=== PATIENT | male | born 1975 | race Caucasian/White ===

== ENCOUNTER 2019-06-16 20:09 | Inpatient (IN) | payer MEDICARE, OTHER ==
[2019-06-16 20:29] LABS: Glucose,Whole Blood 106 mg/dL (75-99)
--- NOTE | 2019-06-16 20:38 | CT ---
EXAMINATION TYPE: CT brain wo con for TPA DATE OF EXAM: 06/16/2019 COMPARISON: None HISTORY: Code stroke, neuro deficits CT DLP: 1161 mGycm Automated exposure control for dose reduction was used. FINDINGS: Ventricles have normal size. There is no mass effect nor midline shift. There is no sign of intracran ial hemorrhage. The calvarium is intact. IMPRESSION: Negative CT scan of the brain.
[2019-06-16] MEDS ORDERED: Alteplase PER PHARMACY Stroke 1 EACH MISC MISCELLANE PRN (20:41)
[2019-06-16] MEDS ORDERED: ALTEPLASE BOLUS 1 MG/1 ML SYRINGE IV STA (20:44)
[2019-06-16] MEDS ORDERED: ALTEPLASE 59 MG in EMPTY BAG 1 BAG IV STA ×2 (20:44→21:05)
[2019-06-16 20:45] LABS: ALT 9 U/L (21-72); AST 14 U/L (17-59); African American GFR (CKD) >90 (>60 ml/min/1.73 sqM); Albumin 4.3 g/dL (3.5-5.0); Alkaline Phosphatase 46 U/L (38-126); Anion Gap 7 mmol/L; Blood Urea Nitrogen 18 mg/dL (9-20); Calcium 9.4 mg/dL (8.4-10.2); Carbon Dioxide 27 mmol/L (22-30); Chloride 105 mmol/L (98-107); Glucose 96 mg/dL (74-99); Potassium 4.5 mmol/L (3.5-5.1); Sodium 139 mmol/L (137-145); Total Bilirubin 0.4 mg/dL (0.2-1.3)
[2019-06-16 20:46] LABS: Basophils # (A) 0.1 k/uL (0-0.2); Basophils % (A) 1 %; Eosinophils # (A) 0.2 k/uL (0-0.7); Eosinophils % (A) 3 %; HGB 15.5 gm/dL (13.0-17.5); Lymphocytes # (A) 2.3 k/uL (1.0-4.8); Lymphocytes % (A) 35 %; MCH 29.9 pg (25.0-35.0); MCHC 32.9 g/dL (31.0-37.0); MCV 90.7 fL (80.0-100.0); Mean Platelet Volume 10.8; Monocytes # (A) 0.5 k/uL (0-1.0); Monocytes % (A) 8 %; Neutrophils # (A) 3.4 k/uL (1.3-7.7); Neutrophils % (A) 51 %; Platelet Count 184 k/uL (150-450); RBC 5.18 m/uL (4.30-5.90); RDW 14.9 % (11.5-15.5); WBC 6.6 k/uL (3.8-10.6)
[2019-06-16 20:48] LABS: Partial Thromboplastin Time 26.8 sec (22.0-30.0); Prothrombin Time 10.7 sec (9.0-12.0)
[2019-06-16 20:51] LABS: Creatine Kinase 45 U/L (55-170)
--- NOTE | 2019-06-16 20:52 | ED ---
Neuro HPI - General Chief Complaint: Neuro Symptoms/Deficit Stated Complaint: Stroke Symptoms Time Seen by Provider: 06/16/19 20:09 Source: patient, EMS, RN notes reviewed Mode of arrival: EMS - History of Present Illness Is the patient presenting with stroke symptoms?: Yes Initial Comments: This a 43-year-old male history of TIA in 2014 who presents with complains the onset of left-sided facial droop left upper lower extremity weakness and started about 90 minutes prior to arrival. Denies any headache denies any trauma fevers chills nausea vomiting sweats. He does admit to being a smoker. He denies any other complaints at this time. - Related Data Home Medications: Home Medications Medication Instructions Recorded Confirmed Ibuprofen/Diphenhydramine HCl 2 cap PO HS 06/16/19 06/16/19 [Advil Pm Liqui-Gels] Ranitidine HCl [Zantac] 150 mg PO HS 06/16/19 06/16/19 Allergies/Adverse Reactions: Allergies Allergy/AdvReac Type Severity Reaction Status Date / Time aspirin Allergy Anaphylaxis Verified 06/16/19 20:57 Penicillins Allergy Anaphylaxis Verified 06/16/19 20:57 codeine AdvReac Nausea & Verified 06/16/19 20:57 Vomiting ibuprofen AdvReac Nausea & Verified 06/16/19 20:57 Vomiting Review of Systems ROS Statement: Those systems with pertinent positive or pertinent negative responses have been documented in the HPI. ROS Other: All systems not noted in ROS Statement are negative. General Exam - General Exam Comments Initial Comments: This is a well-developed well-nourished awake alert oriented 3 male Limitations: physical limitation General appearance: alert, anxious Head exam: Present: normocephalic, other (Patient does demonstrate left facial asymmetry compared to the right with some slurred speech.) Eye exam: Present: PERRL, EOMI ENT exam: Present: other (Left facial asymmetry is noted) Neck exam: Present: normal inspection, full ROM, other (No stridor JVD or bruits). Absent: lymphadenopathy Respiratory exam: Present: normal lung sounds bilaterally. Absent: respiratory distress, wheezes, rales, rhonchi, stridor Cardiovascular Exam: Present: regular rate, normal rhythm, normal heart sounds. Absent: systolic murmur, diastolic murmur, rubs, gallop, clicks GI/Abdominal exam: Present: soft, normal bowel sounds. Absent: distended, tenderness, guarding, rebound, rigid Rectal exam: Present: deferred Extremities exam: Present: normal inspection, full ROM, normal capillary refill. Absent: tenderness, pedal edema, joint swelling, calf tenderness Back exam: Present: normal inspection Neurological exam: Present: alert, oriented X3, motor sensory deficit, other (Left facial droop left upper lower extremity hemiplegia.) Psychiatric exam: Present: normal affect, normal mood Skin exam: Present: warm, dry, intact, normal color. Absent: rash Stroke MDM - Lab Data Result diagrams: 06/16/19 20:15 06/16/19 20:15 Lab Results 06/16/19 06/16/19 06/16/19 Range/Units 20:11 20:15 20:15 WBC 6.6 (3.8-10.6) k/uL RBC 5.18 (4.30-5.90) m/uL Hgb 15.5 (13.0-17.5) gm/dL Hct 47.0 (39.0-53.0) % MCV 90.7 (80.0-100.0) fL MCH 29.9 (25.0-35.0) pg MCHC 32.9 (31.0-37.0) g/dL RDW 14.9 (11.5-15.5) % Plt Count 184 (150-450) k/uL Neutrophils % 51 % Lymphocytes % 35 % Monocytes % 8 % Eosinophils % 3 % Basophils % 1 % Neutrophils # 3.4 (1.3-7.7) k/uL Lymphocytes # 2.3 (1.0-4.8) k/uL Monocytes # 0.5 (0-1.0) k/uL Eosinophils # 0.2 (0-0.7) k/uL Basophils # 0.1 (0-0.2) k/uL Manual Slide Review Performed Large Platelets Present PT (9.0-12.0) sec INR (<1.2) APTT (22.0-30.0) sec Sodium 139 (137-145) mmol/L Potassium 4.5 (3.5-5.1) mmol/L Chloride 105 (98-107) mmol/L Carbon Dioxide 27 (22-30) mmol/L Anion Gap 7 mmol/L BUN 18 (9-20) mg/dL Creatinine 1.09 (0.66-1.25) mg/dL Est GFR (CKD-EPI)AfAm >90 (>60 ml/min/1.73 sqM) Est GFR (CKD-EPI)NonAf 83 (>60 ml/min/1.73 sqM) Glucose 96 (74-99) mg/dL POC Glucose (mg/dL) 106 H (75-99) mg/dL POC Glu Senior Information Systems Architect GREGORIA José Miguel Davila Calcium 9.4 (8.4-10.2) mg/dL Total Bilirubin 0.4 (0.2-1.3) mg/dL AST 14 L (17-59) U/L ALT 9 L (21-72) U/L Alkaline Phosphatase 46 (38-126) U/L Total Creatine Kinase (55-170) U/L CK-MB (CK-2) (0.0-2.4) ng/mL CK-MB (CK-2) Rel Index Troponin I (0.000-0.034) ng/mL Total Protein 7.0 (6.3-8.2) g/dL Albumin 4.3 (3.5-5.0) g/dL 06/16/19 06/16/19 Range/Units 20:15 20:15 WBC (3.8-10.6) k/uL RBC (4.30-5.90) m/uL Hgb (13.0-17.5) gm/dL Hct (39.0-53.0) % MCV (80.0-100.0) fL MCH (25.0-35.0) pg MCHC (31.0-37.0) g/dL RDW (11.5-15.5) % Plt Count (150-450) k/uL Neutrophils % % Lymphocytes % % Monocytes % % Eosinophils % % Basophils % % Neutrophils # (1.3-7.7) k/uL Lymphocytes # (1.0-4.8) k/uL Monocytes # (0-1.0) k/uL Eosinophils # (0-0.7) k/uL Basophils # (0-0.2) k/uL Manual Slide Review Large Platelets PT 10.7 (9.0-12.0) sec INR 1.0 (<1.2) APTT 26.8 (22.0-30.0) sec Sodium (137-145) mmol/L Potassium (3.5-5.1) mmol/L Chloride (98-107) mmol/L Carbon Dioxide (22-30) mmol/L Anion Gap mmol/L BUN (9-20) mg/dL Creatinine (0.66-1.25) mg/dL Est GFR (CKD-EPI)AfAm (>60 ml/min/1.73 sqM) Est GFR (CKD-EPI)NonAf (>60 ml/min/1.73 sqM) Glucose (74-99) mg/dL POC Glucose (mg/dL) (75-99) mg/dL POC Glu Senior Information Systems Architect ID Calcium (8.4-10.2) mg/dL Total Bilirubin (0.2-1.3) mg/dL AST (17-59) U/L ALT (21-72) U/L Alkaline Phosphatase (38-126) U/L Total Creatine Kinase 45 L (55-170) U/L CK-MB (CK-2) <0.2 (0.0-2.4) ng/mL CK-MB (CK-2) Rel Index Troponin I <0.012 (0.000-0.034) ng/mL Total Protein (6.3-8.2) g/dL Albumin (3.5-5.0) g/dL - EKG Data -: EKG Interpreted by Il EKG shows normal: sinus rhythm (Sinus rhythm with sinus rhythm a rate of 75. Interval 1:30 QRS duration 94 QT since QTC 390/[address]-T wave changes) Past Medical History Additional Past Medical History / Comment(s): TIA History of Any Multi-Drug Resistant Organisms: None Reported Past Surgical History: Cholecystectomy, Tonsillectomy Past Psychological History: No Psychological Hx Reported Smoking Status: Current every day smoker Past Alcohol Use History: None Reported Past Drug Use History: None Reported Course Vital Signs 06/16/19 20:34 Temperature 97.7 F Pulse Rate 69 Respiratory 18 Rate Blood Pressure 127/84 O2 Sat by Pulse 99 Oximetry - Reevaluation(s) Reevaluation #1: 06/16/19 20:45 A code stroke was called and a callback and did review the imaging. Patient is a TPA candidate with an NIH score of no from Bactrim he indicated. Reevaluation #2: 06/16/19 20:52 I did discuss findings with the patient has agreed to TPA. He is aware the risks and complications. He has have a history of a remote gastric ulcer in the past has not had any trouble with it for a long time he states Reevaluation #3: 06/16/19 20:52 Evaluation the patient return from CAT scan showed no difference in his findings. Reevaluation #4: 06/16/19 21:53 Patient still is demonstrating marked improvement. I did discuss the case with Dr. Sunshine, Dr. Kathleen and Dr. Holguin. Procedures - Smoking Cessation Time Spent Discussing Smoking Cessation w/Patient (Minutes): 3 Patient Acknowledges Need for Cessation: Yes Critical Care Time Critical Care Time: Yes Critical Care Time: Minutes of critical care time which includes initial presentation with history physical labs x-rays multiple reevaluation the patient to responsive therapy discussion with multiple physicians regarding the findings including Dr. Sunshine the patient be admitted to. Review of old was available admission orders and documentation of the above also includes talking family. 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
[2019-06-16 21:04] LABS: Creatine Kinase MB <0.2 ng/mL (0.0-2.4); Troponin I <0.012 ng/mL (0.000-0.034)
--- NOTE | 2019-06-16 21:07 | CT ---
EXAMINATION TYPE: CT angio head neck DATE OF EXAM: 06/16/2019 HISTORY: neuro deficits COMPARISON: CT DLP: 423.9 mGycm. Automated Exposure Control for Dose Reduction was Utilized. TECHNIQUE: CTA scan of the neck is performed with IV Contrast, patient injected with 50 mL of Isovue 370, axial images are obtained, coronal and sagittal reformatted images are reviewed. Three-D recons tructed images are created on an independent workstation and reviewed. FINDINGS: There is normal branching pattern of the great vessels on the aortic arch. There is bilateral arteria l flow in the subclavian arteries. There is arterial flow in the common internal and external carotid arteries bilaterally. There is bilateral arterial flow in the vertebral arteries. Left vertebral art tom is larger than the right. Carotid artery bifurcations are widely patent. There is arterial flow in the vertebrobasilar artery system. There is arterial flow in the anterior m iddle and posterior cerebral arteries bilaterally. There is no mass effect. There is no evidence of i ntracranial arterial stenosis. There is no evidence of carotid or vertebral artery aneurysm or dissec tion. There is normal contrast opacification of the venous sinuses. There is no evidence of intracran ial arterial aneurysm or dissection. IMPRESSION: Negative CT angiogram of the neck. Negative CT angiogram of the brain.
[2019-06-16 21:14] LABS: Large Platelets Present
--- NOTE | 2019-06-16 21:58 | XR ---
EXAMINATION TYPE: XR chest 1V portable DATE OF EXAM: 06/16/2019 COMPARISON: 09/08/2010 HISTORY: Altered mental status TECHNIQUE: Single frontal view of the chest is obtained. FINDINGS: Heart and mediastinum are normal. Lungs are clear. Diaphragm is normal. There are chest le ads. Bony thorax is intact. IMPRESSION: Normal chest. No change.
[2019-06-16] MEDS: SODIUM CHLORIDE 0.9% 1,000 ML IV SCH (22:40)
--- NOTE | 2019-06-16 22:48 | P.CNNES ---
History of Present Illness Consult date: 06/16/19 Requesting physician: Alejandro Montez Reason for Consult: CVA Chief complaint: Left facial droop and left-sided weakness History of Present Illness: This is a 43 RH male whose main vascular risk factor is tobacco use. He started smoking at age 8-9 and smokes 2.5ppd (he rolls his own cigarettes). He also sees Dr. Lara in neurology locally for migraine. Patient states his migraine consists of intense throbbing unilateral pain associated with photosonophobia and nausea. Occasionally associated with vertigo but never with dysarthria, focal numbness/weakness. Earlier today he did have a migraine. Then around 630- 700pm 06/16/19 he developed abrupt onset of left facial droop and left hemiparesis for which he presented to the ER. Initial NIHSS was 6. Interventional neurology was consulted and recommended IV t-PA, which he received at 0858pm 06/16/19 without incidence. He currently c/o right-sided CP, which the ER knows about, but no headache. His facial droop resolved. His LUE is nearly back to normal. His LLE is stronger as well but still heavy. In short, he has improved significantly since t-PA was administered. Review of Systems 14-point ROS performed and as per HPI. Neurologically, patient denies decreased level or loss of consciousness, seizure, changes in vision, diplopia, amaurosis, changes in hearing, ptosis, vertigo, hearing loss, tinnitus, dysarthria, dysphagia, aphasia, other focal numbness/weakness not mentioned above, tremors, bowel/bladder incontinence or ataxia. Past Medical History Additional Past Medical History / Comment(s): TIA History of Any Multi-Drug Resistant Organisms: None Reported Past Surgical History: Cholecystectomy, Tonsillectomy Past Psychological History: No Psychological Hx Reported Smoking Status: Current every day smoker Past Alcohol Use History: None Reported Past Drug Use History: None Reported Medications and Allergies Home Medications Medication Instructions Recorded Confirmed Type Ibuprofen/Diphenhydramine HCl 2 cap PO HS 06/16/19 06/16/19 History [Advil Pm Liqui-Gels] Ranitidine HCl [Zantac] 150 mg PO HS 06/16/19 06/16/19 History Allergies Allergy/AdvReac Type Severity Reaction Status Date / Time aspirin Allergy Anaphylaxis Verified 06/16/19 20:57 Penicillins Allergy Anaphylaxis Verified 06/16/19 20:57 codeine AdvReac Nausea & Verified 06/16/19 20:57 Vomiting ibuprofen AdvReac Nausea & Verified 06/16/19 20:57 Vomiting Physical Examination - Vital Signs Vital Signs: Vital Signs Temp Pulse Resp BP Pulse Ox 06/16/19 20:34 97.7 F 69 18 127/84 99 Intake and Output 06/16/19 06/16/19 06/16/19 06:59 14:59 22:59 Other: Weight 73.028 kg Gen NAD Pleasant and cooperative HEENT NCAT Sclera without icterus O/P clear Neck Supple No carotid bruit Cor RRR no m/r/g Lungs CTAB Abd Soft NTND +BS Ext Warm to touch No edema Neuro MS A+Ox4 Normal fluency Able to follow all commands CN PERRL VFF no APD EOMI no nystagmus or GALLO No facial asymmetry Smile is symmetric [place]'s symmetric Hearing intact to normal voice bilaterally Speech not dysarthric Equal elevation of palate Tongue midline Sym shrug and SCM bilaterally Motor Normal bulk/tone No pronator drift +LLE drift but does not hit bed No tremors Strength 5/5 right 5-/5 LUE 4+/5 LLE Sens Intact to LT x4 No neglect or extinction Coord No dysmetria on FTN bilaterally DTRs 2+/4 sym throughout Toes downgoing bilaterally No clonus at achilles Gait Deferred NIHSS 6a1=1 Results - Laboratory Findings CBC and BMP: 06/16/19 20:15 06/16/19 20:15 Abnormal Lab Findings: Abnormal Labs 06/16/19 06/16/19 06/16/19 20:11 20:15 20:15 POC Glucose (mg/dL) 106 H AST 14 L ALT 9 L Total Creatine Kinase 45 L - Diagnostic Findings Additional findings: CT Head wo cont 06/16/19. No ICH. Nil acute. CTA Head/Neck 06/16/19. No LVO or stenosis. I have reviewed all neuroimages myself. Assessment and Plan Assessment: Left FD and HP significantly improved since IV t-PA. With his significant h/o tobacco use, would be concerned about right hemispheric small vessel/lacunar- type ischemic infarct such as internal capsule. He also had a migraine earlier in the day; complicated migraine is another differential consideration but always diagnosis of exclusion. Plan: -Admit to ICU s/p IV t-PA -Neuro checks per protocol -Permissive HTN SBP <180 -No antiplatelets or anticoagulants for 24 hours -MRI Brain in am. Will need some type of cranial imaging to make sure no ICH within 24 hours after IV t-PA. If MRI cannot happen by tomorrow evening, will need repeat CT head wo cont -TTE with bubble -Fasting lipids in am goal LDL <70. Statin therapy started -Long-term goals BP <130/80 and hga1c <7.0 -Smoking cessation counseling held -Stroke education given to patient -PT/OT/SP per protocol -DVT prophylaxis: t-PA for next 24 hours -d/w patient in detail. All questions answered. Thank you for this consultation. Please call with ?. Time with Patient: Greater than 30 (Time spent in direct patient care, greater than 50% of which was spent in [id number] counseling and coordination of care: 70 minutes)
[2019-06-16 23:21] LABS: Glucose,Whole Blood 101 mg/dL (75-99)
[2019-06-17 00:17] VITALS: BMI 24.7
[2019-06-17] MEDS ORDERED: NALOXONE 0.4 MG/ML 1 ML VIAL IV PRN (01:23)
[2019-06-17 06:05] LABS: African American GFR (CKD) >90 (>60 ml/min/1.73 sqM); Anion Gap 8 mmol/L; Blood Urea Nitrogen 21 mg/dL (9-20); Calcium 9.6 mg/dL (8.4-10.2); Carbon Dioxide 22 mmol/L (22-30); Chloride 108 mmol/L (98-107); Cholesterol 200 mg/dL (<200); Glucose 87 mg/dL (74-99); HDL Cholesterol 41 mg/dL (40-60); LDL Cholesterol,Calculated 137 mg/dL (0-99); Potassium 4.6 mmol/L (3.5-5.1); Sodium 138 mmol/L (137-145); Triglycerides 110 mg/dL (<150)
[2019-06-17 06:19] LABS: Basophils # (A) 0.1 k/uL (0-0.2); Basophils % (A) 1 %; Eosinophils # (A) 0.2 k/uL (0-0.7); Eosinophils % (A) 3 %; HCT 48.1 % (39.0-53.0); HGB 15.2 gm/dL (13.0-17.5); Lymphocytes % (A) 34 %; MCH 28.8 pg (25.0-35.0); MCHC 31.7 g/dL (31.0-37.0); MCV 90.7 fL (80.0-100.0); Mean Platelet Volume 10.5; Monocytes # (A) 0.6 k/uL (0-1.0); Monocytes % (A) 7 %; Neutrophils # (A) 4.7 k/uL (1.3-7.7); Neutrophils % (A) 53 %; Platelet Count 165 k/uL (150-450); RDW 13.9 % (11.5-15.5); WBC 8.8 k/uL (3.8-10.6)
[2019-06-17 07:14] LABS: Large Platelets Present
[2019-06-17] MEDS ORDERED: FAMOTIDINE 20 MG/2 ML VIAL IV SCH (09:00)
[2019-06-17] MEDS: SODIUM CHLORIDE 0.9% 1,000 ML IV SCH (09:46)
--- NOTE | 2019-06-17 12:19 | MR ---
EXAMINATION TYPE: MR brain wo con DATE OF EXAM: 06/17/2019 COMPARISON: Outside MRI dated 05/23/2019 HISTORY: CVA status post TPA TECHNIQUE: T1-weighted sagittal, T2, FLAIR, and diffusion axial, and T2 coronal coronal views of the brain are submitted. FINDINGS: The ventricles, basal cisterns, and sulci overlying the convexities are consistent with the patient's age. There is no mass effect. Craniocervical junction maintained. Sella turcica has a normal appearance. No cerebellopontine angle mass. Changes of chronic sinusitis and right-sided mastoiditis. There are numerous areas of abnormal signal surrounding the periventricular subcortical white matter bilaterally. Nonspecific white matter changes in the pontomedullary junction are also are noted. Find ings are similar to the prior exam. IMPRESSION: 1. There is persistent diffuse white matter changes in a nonspecific pattern. Diffusion imaging does demonstrate small multiple areas of focal increased signal which are similar to the prior exam. Findi ngs could represent demyelinating plaques of multiple sclerosis. Subacute ischemia in the differentia l diagnosis with particular attention to a subcentimeter area within the left parietal white matter. Correlate clinically. Overall findings are similar to the prior MRI. Other less likely etiologies inc luding ADEM, PML or vasculitis not excluded.
[2019-06-17 12:28] VITALS: TEMP 97.6
--- NOTE | 2019-06-17 13:30 | P.CNPUL ---
History of Present Illness Consult date: 06/17/19 Reason for consult: other (Acute CVA, status post thrombolytic treatment) Chief complaint: Left sided facial droop and left-sided weakness History of present illness: This is a 43-year-old white male, smoker, patient is at least a [id number] smoker, known history of migraine cephalgia, presented to the ER yesterday with abrupt onset of left facial droop and left-sided weakness including weakness of the left upper extremity and left lower extremity. While in the ER, his NIH stroke scale was 6. Interventional neurology was consulted and recommended IV TPA to be started. This was given without incidence, his neurological symptoms have resolved, and sustained no evidence of any complications related to TPA the rapy. Patient was admitted to the ICU, and I was asked to see him on consultation. Again his neurological symptoms have dramatically improved after TPA administration. Initial CT of the brain was unremarkable. Initial CT angiogram of the neck was unremarkable. MRI this morning showed nonspecific white matter changes, very much similar to previous MRI done on 05/23/2019. The radiologist raised the possibility of demyelinating plaques of multiple sclerosis also raise the possibility of subacute ischemia in the differential diagnoses with particular attention to small tiny area in the left parietal white matter. Overall the findings on the MRI this morning were not much different from MRI done in the last month. Clinically patient is doing great, asymptomatic. Patient was seen by neurology, and recommended echocardiogram with bubble study and that is pending. Review of Systems Constitutional: Denies any weight loss, denies any fever or chills. HEENT: Denies any sore throat, denies earache, denies any headache, denies any blurred vision, did develop left facial droop shortly before arrival to the ER Pulmonary: Denies any cough no wheezing no shortness of breath no chest pain. Cardiac: Denies any chest pain, no palpitations, no diaphoresis. GI: Denies any nausea vomiting abdominal pain melena or hematemesis. Genitourinary: Denies any dysuria frequency urgency or hematuria. Musculoskeletal: Left-sided weakness, resolved post-TPA. Neurologic: As noted in HPI. Hematologic: No clotting bleeding or bruising . Psychiatric: Denies any symptoms of active depression. Skin: No rashes, no pruritus. Past Medical History Past Medical History: Asthma Additional Past Medical History / Comment(s): TIA, Murmur, Cerebral palsy History of Any Multi-Drug Resistant Organisms: None Reported Past Surgical History: Cholecystectomy, Tonsillectomy Past Psychological History: No Psychological Hx Reported Smoking Status: Current every day smoker Past Alcohol Use History: None Reported Past Drug Use History: None Reported - Past Family History Mother Family Medical History: Asthma, Congestive Heart Failure (CHF), COPD, CVA/TIA, Hypertension, Myocardial Infarction (SC), Osteoarthritis (OA), Pneumonia Father Family Medical History: COPD, CVA/TIA, Deep Vein Thrombosis (DVT), Eye Disorder, Myocardial Infarction (SC), Seizure Disorder, Thyroid Disorder Medications and Allergies Home Medications Medication Instructions Recorded Confirmed Type Ibuprofen/Diphenhydramine HCl 2 cap PO HS 06/16/19 06/16/19 History [Advil Pm Liqui-Gels] Ranitidine HCl [Zantac] 150 mg PO HS 06/16/19 06/16/19 History Allergies Allergy/AdvReac Type Severity Reaction Status Date / Time aspirin Allergy Anaphylaxis Verified 06/16/19 20:57 Penicillins Allergy Anaphylaxis Verified 06/16/19 20:57 codeine AdvReac Nausea & Verified 06/16/19 20:57 Vomiting ibuprofen AdvReac Nausea & Verified 06/16/19 20:57 Vomiting Physical Exam Vitals: Vital Signs Temp Pulse Pulse Resp BP BP Pulse Ox 06/17/19 12:00 97.6 F 66 34 H 120/78 92 L 06/17/19 11:30 47 L 14 131/78 99 06/17/19 11:00 63 21 119/77 99 06/17/19 10:30 119/77 06/17/19 10:00 49 L 16 124/84 100 06/17/19 09:30 57 L 17 124/84 99 06/17/19 09:00 54 L 14 127/80 99 06/17/19 08:30 55 L 14 119/96 99 06/17/19 08:00 97.5 F L 49 L 15 119/82 99 06/17/19 07:30 54 L 17 117/75 99 06/17/19 07:00 61 12 128/76 96 06/17/19 06:30 61 18 120/84 97 06/17/19 06:00 60 18 139/80 93 L 06/17/19 05:30 58 L 16 100 06/17/19 05:00 59 L 16 126/86 96 06/17/19 04:30 56 L 25 H 123/76 98 06/17/19 04:00 97.5 F L 49 L 16 116/77 97 06/17/19 03:30 52 L 16 97 06/17/19 03:00 55 L 14 114/86 97 06/17/19 02:30 60 14 96 06/17/19 02:00 55 L 17 103/76 97 06/17/19 01:30 56 L 16 98 06/17/19 01:00 78 16 118/60 98 06/17/19 00:33 66 17 97 06/17/19 00:30 63 23 117/81 96 06/17/19 00:20 64 19 98 06/17/19 00:10 58 L 12 98 06/17/19 00:00 97.8 F 69 17 104/73 96 06/16/19 23:40 16 110/60 98 06/16/19 23:10 97.9 F 65 66 16 109/75 130/70 97 06/16/19 23:00 60 16 120/78 98 06/16/19 22:50 62 20 120/78 98 06/16/19 22:40 65 13 112/79 99 06/16/19 22:30 60 17 134/82 99 06/16/19 22:20 66 17 134/82 100 06/16/19 22:10 63 19 108/74 100 06/16/19 22:00 63 22 118/73 99 06/16/19 21:50 72 16 118/73 100 06/16/19 21:40 63 20 116/72 97 06/16/19 21:30 66 13 125/83 100 06/16/19 21:20 78 29 H 125/83 100 06/16/19 21:10 82 21 115/73 93 L 06/16/19 20:58 72 16 127/84 99 06/16/19 20:34 97.7 F 69 18 127/84 99 06/16/19 20:12 68 18 120/76 100 Intake and Output 06/16/19 06/17/19 06/17/19 22:59 06:59 14:59 Intake Total 1280 300 Output Total 850 850 Balance 430 -550 Intake: IV 800 100 .9 800 100 Oral 480 200 Output: Urine 850 850 Other: Voiding Method Urinal # Voids 1 Weight 73.028 kg 76 kg 76 kg General appearance: Revealed 43-year-old white male, pleasant, in no distress. Head exam: Atraumatic, normocephalic. Eye exam: PERRL, EOMI ENT exam: Moist mucous membranes, throat is clear. Neck exam: full ROM, other (No stridor JVD or bruits). no lymphadenopathy Respiratory exam: Symmetrical chest expansion, clear breath sound bilaterally no crackles or rhonchi or wheezes. Cardiovascular Exam: Normal S1 and S2, no S3 gallop, no murmur. GI/Abdominal exam: Soft nontender no megaly no rebound no guarding positive bowel sounds. Extremities exam: normal inspection, full ROM, normal capillary refill. Absent: tenderness, pedal edema, joint swelling, calf tenderness Back exam: normal inspection Neurological exam: alert, oriented X3, no evidence of motor or sensory deficit. Psychiatric exam: normal affect, normal mood, normal mental status examination Skin exam: Warm and dry, no rashes. Results - Laboratory Findings CBC and BMP: 06/17/19 05:34 06/17/19 05:34 PT/INR, D-dimer PT 10.7 sec (9.0-12.0) 06/16/19 20:15 INR 1.0 (<1.2) 06/16/19 20:15 Abnormal lab findings: Abnormal Labs 06/16/19 06/16/19 06/16/19 20:11 20:15 20:15 Chloride BUN POC Glucose (mg/dL) 106 H AST 14 L ALT 9 L Total Creatine Kinase 45 L Cholesterol LDL Cholesterol, Calc 06/16/19 06/17/19 23:16 05:34 Chloride 108 H BUN 21 H POC Glucose (mg/dL) 101 H AST ALT Total Creatine Kinase Cholesterol 200 H LDL Cholesterol, Calc 137 H - Diagnostic Findings Additional studies: All studies done on admission and post admission were noted in HPI. Assessment and Plan Assessment: Impression: 1: Acute ischemic CVA, presented with acute facial droop and left-sided weakness status post TPA treatment. Neurological symptoms have resolved. 2 history of migraine cephalgia being followed by neurology on outpatient basis. 3 abnormal MRI, questioning possible multiple sclerosis, this is to be addressed by neurology on the case. Patient normally follows up with neurology on outpatient basis. 4 tobacco dependence syndrome, patient was counseled regarding smoking cessation. Recommendation: Continue present treatment plan as outlined by neurology on the case, MRI of the brain no results were noted. Transthoracic echocardiogram with bubble is pending. Patient must stop smoking, and decrease his risk factors. Maintain normal blood pressure, maintain normal lipid profile, and should have stroke education. We'll continue to follow. Time with Patient: Greater than 30
--- NOTE | 2019-06-17 14:08 | P.DS ---
Providers Date of admission: 06/16/19 21:57 Attending physician: Higinio Sunshine MD Consults: 06/16/19 21:58 Consult Physician Urgent Consulting Provider: Chrissie Kathleen Consult Reason/Comments: CVA Do you want consulting provider notified?: Already Contacted Consult Physician Urgent Consulting Provider: Rashmi Holguin Consult Reason/Comments: CVA, ICU management, status post TPA Do you want consulting provider notified?: Already Contacted 06/17/19 11:05 Consult Physician Routine Consulting Provider: Ras Limon Consult Reason/Comments: cva/bubble study Do you want consulting provider notified?: Yes Primary care physician: Laura Leone [facility] Course: Patient is leaving AGAINST MEDICAL ADVICE Patient Condition at Discharge: Fair Plan - Discharge Summary Discharge Rx Participant: Yes New Discharge Prescriptions: New Aspirin 81 mg PO DAILY #30 chewable Atorvastatin [Lipitor] 80 mg PO HS #30 tab No Action Ranitidine HCl [Zantac] 150 mg PO HS Ibuprofen/Diphenhydramine HCl [Advil Pm Liqui-Gels] 2 cap PO HS Discharge Medication List Ibuprofen/Diphenhydramine HCl [Advil Pm Liqui-Gels] 2 cap PO HS 06/16/19 [History] Ranitidine HCl [Zantac] 150 mg PO HS 06/16/19 [History] Aspirin 81 mg PO DAILY #30 chewable 06/17/19 [Rx] Atorvastatin [Lipitor] 80 mg PO HS #30 tab 06/17/19 [Rx] Follow up Appointment(s)/Referral(s): Brenda Lara MD [STAFF PHYSICIAN] - 1 Week Laura Leone MD [Primary Care Provider] - 1-2 days Discharge Disposition: HOME SELF-CARE
--- NOTE | 2019-06-17 14:08 | P.HPIM ---
History of Present Illness 43-year-old male came in with complaints of left facial droop and left-sided hemiparesis, received a TPA with complete resolution of symptoms patient doesn't have any weakness or sensory deficits at this time. Patient smokes about 2 and half packs per day. Patient had an MRI which showed multiple areas of hypodensity is consistent with demyelinating disease these findings were seen in his previous MRI as well and is undergoing workup as an outpatient for multiple sclerosis. Ideally we are supposed to see any area of ischemia in the internal capsule area on the right side which although is not evident on MRI. Patient may have had a TIA. Since he received the TPA patient will need to be monitored for at least 24 hours but patient is not willing to stay in the hospital wanted to leave AGAINST MEDICAL ADVICE. Patient will be given prescription for aspirin and the statin his LDL is elevated. CT angiography of the brain and neck did not show any significant atherosclerotic occlusive disease. Nicotine cessation counseling was provided Review of Systems REVIEW OF SYSTEMS: CONSTITUTIONAL: No fever, no malaise, no fatigue. HEENT: No recent visual problems or hearing problems. Denied any sore throat. CARDIOVASCULAR: No chest pain, orthopnea, PND, no palpitations, no syncope. PULMONARY: No shortness of breath, no cough, no hemoptysis. GASTROINTESTINAL: No diarrhea, no nausea, no vomiting, no abdominal pain. NEUROLOGICAL: No headaches, no weakness, no numbness. HEMATOLOGICAL: Denies any bleeding or petechiae. GENITOURINARY: Denies any burning micturition, frequency, or urgency. MUSCULOSKELETAL/RHEUMATOLOGICAL: Denies any joint pain, swelling, or any muscle pain. ENDOCRINE: Denies any polyuria or polydipsia. The rest of the 14-point review of systems is negative. Past Medical History Past Medical History: Asthma Additional Past Medical History / Comment(s): TIA, Murmur, Cerebral palsy History of Any Multi-Drug Resistant Organisms: None Reported Past Surgical History: Cholecystectomy, Tonsillectomy Past Psychological History: No Psychological Hx Reported Smoking Status: Current every day smoker Past Alcohol Use History: None Reported Past Drug Use History: None Reported - Past Family History Mother Family Medical History: Asthma, Congestive Heart Failure (CHF), COPD, CVA/TIA, Hypertension, Myocardial Infarction ([place]), Osteoarthritis (OA), Pneumonia Father Family Medical History: COPD, CVA/TIA, Deep Vein Thrombosis (DVT), Eye Disorder, Myocardial Infarction ([place]), Seizure Disorder, Thyroid Disorder Medications and Allergies Home Medications Medication Instructions Recorded Confirmed Type Ibuprofen/Diphenhydramine HCl 2 cap PO HS 06/16/19 06/16/19 History [Advil Pm Liqui-Gels] Ranitidine HCl [Zantac] 150 mg PO HS 06/16/19 06/16/19 History Aspirin 81 mg PO DAILY #30 chewable 06/17/19 Rx Atorvastatin [Lipitor] 80 mg PO HS #30 tab 06/17/19 Rx Allergies Allergy/AdvReac Type Severity Reaction Status Date / Time aspirin Allergy Anaphylaxis Verified 06/16/19 20:57 Penicillins Allergy Anaphylaxis Verified 06/16/19 20:57 codeine AdvReac Nausea & Verified 06/16/19 20:57 Vomiting ibuprofen AdvReac Nausea & Verified 06/16/19 20:57 Vomiting Physical Exam Vitals: Vital Signs Temp Pulse Pulse Resp BP BP Pulse Ox 06/17/19 13:00 68 12 109/84 95 06/17/19 12:30 74 15 131/86 97 06/17/19 12:00 97.6 F 66 34 H 120/78 92 L 06/17/19 11:30 47 L 14 131/78 99 06/17/19 11:00 63 21 119/77 99 06/17/19 10:30 119/77 06/17/19 10:00 49 L 16 124/84 100 06/17/19 09:30 57 L 17 124/84 99 06/17/19 09:00 54 L 14 127/80 99 06/17/19 08:30 55 L 14 119/96 99 06/17/19 08:00 97.5 F L 49 L 15 119/82 99 06/17/19 07:30 54 L 17 117/75 99 06/17/19 07:00 61 12 128/76 96 06/17/19 06:30 61 18 120/84 97 06/17/19 06:00 60 18 139/80 93 L 06/17/19 05:30 58 L 16 100 06/17/19 05:00 59 L 16 126/86 96 06/17/19 04:30 56 L 25 H 123/76 98 06/17/19 04:00 97.5 F L 49 L 16 116/77 97 06/17/19 03:30 52 L 16 97 06/17/19 03:00 55 L 14 114/86 97 06/17/19 02:30 60 14 96 06/17/19 02:00 55 L 17 103/76 97 06/17/19 01:30 56 L 16 98 06/17/19 01:00 78 16 118/60 98 06/17/19 00:33 66 17 97 06/17/19 00:30 63 23 117/81 96 06/17/19 00:20 64 19 98 06/17/19 00:10 58 L 12 98 06/17/19 00:00 97.8 F 69 17 104/73 96 06/16/19 23:40 16 110/60 98 06/16/19 23:10 97.9 F 65 66 16 109/75 130/70 97 06/16/19 23:00 60 16 120/78 98 06/16/19 22:50 62 20 120/78 98 06/16/19 22:40 65 13 112/79 99 06/16/19 22:30 60 17 134/82 99 06/16/19 22:20 66 17 134/82 100 06/16/19 22:10 63 19 108/74 100 06/16/19 22:00 63 22 118/73 99 06/16/19 21:50 72 16 118/73 100 06/16/19 21:40 63 20 116/72 97 06/16/19 21:30 66 13 125/83 100 06/16/19 21:20 78 29 H 125/83 100 06/16/19 21:10 82 21 115/73 93 L 06/16/19 20:58 72 16 127/84 99 06/16/19 20:34 97.7 F 69 18 127/84 99 06/16/19 20:12 68 18 120/76 100 Intake and Output 06/16/19 06/17/19 06/17/19 22:59 06:59 14:59 Intake Total 1280 300 Output Total 850 850 Balance 430 -550 Intake: IV 800 100 .9 800 100 Oral 480 200 Output: Urine 850 850 Other: Voiding Method Urinal # Voids 1 Weight 73.028 kg 76 kg 76 kg PHYSICAL EXAMINATION: GENERAL: The patient is alert and oriented x3, not in any acute distress. Well developed, well nourished. HEENT: Pupils are round and equally reacting to light. EOMI. No scleral icterus. No conjunctival pallor. Normocephalic, atraumatic. No pharyngeal erythema. No thyromegaly. CARDIOVASCULAR: S1 and S2 present. No murmurs, rubs, or gallops. PULMONARY: Chest is clear to auscultation, no wheezing or crackles. ABDOMEN: Soft, nontender, nondistended, normoactive bowel sounds. No palpable organomegaly. MUSCULOSKELETAL: No joint swelling or deformity. EXTREMITIES: No cyanosis, clubbing, or pedal edema. NEUROLOGICAL: Gross neurological examination did not reveal any focal deficits. SKIN: No rashes. Results CBC & Chem 7: 06/17/19 05:34 06/17/19 05:34 Labs: Abnormal Lab Results - Last 24 Hours (Table) 06/16/19 06/16/19 06/16/19 Range/Units 20:11 20:15 20:15 Chloride (98-107) mmol/L BUN (9-20) mg/dL POC Glucose (mg/dL) 106 H (75-99) mg/dL AST 14 L (17-59) U/L ALT 9 L (21-72) U/L Total Creatine Kinase 45 L (55-170) U/L Cholesterol (<200) mg/dL LDL Cholesterol, Calc (0-99) mg/dL 06/16/19 06/17/19 Range/Units 23:16 05:34 Chloride 108 H (98-107) mmol/L BUN 21 H (9-20) mg/dL POC Glucose (mg/dL) 101 H (75-99) mg/dL AST (17-59) U/L ALT (21-72) U/L Total Creatine Kinase (55-170) U/L Cholesterol 200 H (<200) mg/dL LDL Cholesterol, Calc 137 H (0-99) mg/dL Thrombosis Risk Factor Assmnt - Choose All That Apply Each Factor Represents 1 point: Age 41-60 years Other Risk Factors: No Thrombosis Risk Factor Assessment Total Risk Factor Score: 1 Thrombosis Risk Factor Assessment Level: Low Risk Assessment and Plan Plan: -Possible transient ischemic attack: Completely resolution of symptoms patient will be given prescription for aspirin and the statin patient need to be monitored for 24 hours post TPA but patient is not willing to stay in the hospital wanted to leave AGAINST MEDICAL ADVICE, patient was advised to have a t ransesophageal echo cardiographic considering his murmur and patient declined to stay in the hospital -Nicotine abuse: Counseling was provided -Multiple sclerosis or other chronic demyelinating disease and a possibility of complicated migraine: Patient will follow up with neurology as an outpatient and further workup for his edema leading disease or multiple sclerosis as an outpatient
[2019-06-17 14:10] VITALS: BP 109/62; PULSE 58; RESP 19
--- NOTE | 2019-06-17 15:12 | P.PN ---
Progress Note - Text Progress Note Date: 06/17/19 Went to ICU twice in attempt to see patient. First time he was down in MRI. The second time he had already left AMA. I did review his MRI Brain findings and discussed the case with the primary team Dr. Rodriguez and SLEEP MANAGER. His MRI did not show area of restricted diffusion. It does show persistent diffuse white matter changes in a non-specific pattern. Neuroradiology mentioned a rather large differential including ADEM, PML, vasculitis and so forth. My personal opinion is he has been smoking since age 8 and continues to smoke 2.5ppd, that these white matter changes are likely small vessel disease. I am treating this as a case of TIA given his extensive history of tobacco use. In fact, he left AMA so he could go smoke. He is being discharged on aspirin 81mg/day that he will start this evening at 1000pm 06/17/19 after the full effects of the t-PA have worn off. He will also start atorvastatin 80mg po qhs since his LDL is >130 with goal <70. He already has an outpatient neurologist Dr. Lara that he will follow up with in one week.
--- NOTE | 2019-06-17 18:26 | ECHOF ---
Referral Reason:Thrombus MEASUREMENTS -------- HEIGHT: 175.3 cm WEIGHT: 73.5 kg BP: 131/78 RVIDd: 2.4 cm (< 3.3) IVSd: 1.1 cm (0.6 - 1.1) LVIDd: 4.8 cm (3.9 - 5.3) LVPWd: 0.9 cm (0.6 - 1.1) IVSs: 1.5 cm LVIDs: 2.8 cm LVPWs: 1.6 cm LA Diam: 3.4 cm (2.7 - 3.8) LAESV Index (A-L): 20.31 ml/m Ao Diam: 2.8 cm (2.0 - 3.7) AV Cusp: 2.0 cm (1.5 - 2.6) MV EXCURSION: 23.970 mm (> 18.000) MV EF SLOPE: 152 mm/s (70 - 150) EPSS: 0.3 cm MV E Bobby: 0.93 m/s MV DecT: 199 ms MV A Bobby: 0.49 m/s MV E/A Ratio: 1.89 FINDINGS -------- Sinus rhythm. This was a technically good study. The left ventricular size is normal. There is borderline concentric left ventricular hypertrophy. Overall left ventricular systolic function is normal with, an EF between 60 - 65 %. The right ventricle is normal in size. Normal LA size by volume 22+/-6 ml/m2. The right atrium is normal in size. Interatrial and interventricular septum intact. The aortic valve is trileaflet and appears structurally normal. The mitral valve is normal. No regurgitation noted There is no pulmonic regurgitation present. The aortic root size is normal. Normal inferior vena cava with normal inspiratory collapse consistent with estimated right atrial pre ssure of 5 mmHg. There is no pericardial effusion. CONCLUSIONS -------- 1. Sinus rhythm. 2. This was a technically good study. 3. The left ventricular size is normal. 4. There is borderline concentric left ventricular hypertrophy. 5. Overall left ventricular systolic function is normal with, an EF between 60 - 65 %. 6. The right ventricle is normal in size. 7. Normal LA size by volume 22+/-6 ml/m2. 8. The right atrium is normal in size. 9. Interatrial and interventricular septum intact. 10. The aortic valve is trileaflet and appears structurally normal. 11. The mitral valve is normal. 12. No regurgitation noted 13. There is no pulmonic regurgitation present. 14. The aortic root size is normal. 15. Normal inferior vena cava with normal inspiratory collapse consistent with estimated right atrial pressure of 5 mmHg. 16. There is no pericardial effusion. STONE MILL OPERATOR: Akosua Leggett RDCS
[2019-06-17] MEDS ORDERED: ATORVASTATIN 80 MG TAB PO SCH (21:00)
[2019-06-17] MEDS ORDERED: FAMOTIDINE 20 MG TAB PO SCH (21:00)
== END 2019-06-17 15:14 | disposition left against medical advice (07) | DRG 63 ==
LOC: EC 20:09 → 2SICU 21:57
PROVIDERS: ADMIT Internal Medicine; ATTEND Internal Medicine
DX: G45.9 Transient cerebral ischemic attack, unspecified (principal); R29.706 NIHSS score 6; F17.210 Nicotine dependence, cigarettes, uncomplicated; G43.109 Migraine with aura, not intractable, without status migrainosus; G80.9 Cerebral palsy, unspecified; I73.9 Peripheral vascular disease, unspecified; J45.909 Unspecified asthma, uncomplicated; R01.1 Cardiac murmur, unspecified; Z86.73 Personal history of transient ischemic attack (TIA), and cerebral infarction without residual deficits; Z88.6 Allergy status to analgesic agent; Z88.5 Allergy status to narcotic agent; Z88.0 Allergy status to penicillin; Z90.49 Acquired absence of other specified parts of digestive tract; Z79.82 Long term (current) use of aspirin; Z79.899 Other long term (current) drug therapy; Z82.0 Family history of epilepsy and other diseases of the nervous system; Z82.49 Family history of ischemic heart disease and other diseases of the circulatory system; Z82.5 Family history of asthma and other chronic lower respiratory diseases; Z82.3 Family history of stroke; Z82.61 Family history of arthritis; Z83.49 Family history of other endocrine, nutritional and metabolic diseases
CPT/HCPCS: 36415; 37195; 70450; 70496; 70498; 70551; 71045; 80048; 80053; 80061; 82550; 82553; 84484; 85025; 85610; 85730; 93306; 99285